=== PATIENT | male | born 1950 | race Caucasian/White ===

== ENCOUNTER → 2020-02-08 09:45 | Outpatient (CLI) | payer MEDICARE, SELFPAY ==
--- NOTE | ~2020-02-08 | MR_ITS ---
EXAMINATION: MR knee RT wo con DATE: 02/08/2020 10:21 INDICATION: Unspecified internal derangement of the right knee TECHNIQUE: Magnetic resonance imaging (MRI) of the right knee was performed without intravenous contr ast. Sequences included coronal PD-weighted FSE, coronal PD-weighted FS FSE, sagittal T2-weighted FS E, sagittal PD-weighted FS FSE and axial PD weighted fat saturated FSE. COMPARISON: None. FINDINGS: Medial compartment: Complex tear at the posterior horn of the medial meniscus which includes a radial tear across the inn er half of the posterior horn. There is a longitudinal vertical tear plane which extends laterally an d gradually more peripherally from the radial tear plane towards the root of the medial meniscus. Par tial-thickness chondral ulceration involving less than 50% the cartilage thickness and with chondral surface regularity along the anterior to central weightbearing medial femoral condyle. There is deep chondral fissuring with mild underlying subarticular edema at the posterior weightbearing medial femo ral condyle. There is heterotopic ossification along the capsular insertion at the posterolateral mar gin of the medial tibial plateau. Lateral compartment: Lateral meniscus is normal. Small region of shallow chondral fissuring at the posterior aspect of the lateral tibial plateau. Patellofemoral compartment: Partial-thickness cartilage loss with chondral surface regularity along the medial patellar facet and apical ridge. Scattered deeper chondral fissuring of both the medial and lateral patellar facets wit h a few scattered small foci of subarticular edema at both the medial and lateral facets. Deep chondr al fissuring with mild subarticular edema at the inferior aspect of the lateral trochlea. Small centr al subchondral osteophyte at the margin of a small deep chondral ulceration at the inferior aspect of the medial trochlea. Ligaments and tendons: Anterior cruciate ligament is normal. There is mild thickening and increased intrasubstance signal wi thin the distal portion of the posterior cruciate ligament which could represent mucoid degeneration or partial tear. The medial collateral ligament and fibular collateral ligament complex are normal. M ild distal quadriceps tendinopathy with moderate sized enthesophytes at the superficial aspect of the patellar insertion. Patellar tendon is normal. The visualized medial and lateral hamstring tendons a s well as the iliotibial band are normal. Fluid: Small right knee joint effusion. No loose osteochondral bodies identified. Osseous/other: Developmental variant type II bipartite patella with separate smaller accessory ossification along th e lateral margin of the patella proper. There is cystic change along both sides of the synchondrosis. No fracture or pathologic marrow replacing process. There is edema in the superficial suprapatellar fat pad which can be seen with fat pad impingement syndrome. IMPRESSION: 1. 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 2. Complex tear of the posterior horn of the medial meniscus. 3. Mild tricompartmental osteoarthritis with minimal moderate grade chondromalacia in the lateral com partment more extensive moderate and high-grade chondromalacia in the medial and patellofemoral aurelio rtments. 4. Mucoid degeneration versus possible partial tear of the posterior cruciate ligament. 5. Mild chronic enthesopathy at the distal quadriceps tendon. 6. Likely reactive small right knee joint effusion. 7. Comparison mild edema in the superficial suprapatellar fat pad which can be seen with fat pad impi ngement syndrome. Reviewed, dictated and finalized at location B. Electronically signed by Jayy Gonsales M.D
== END ==
PROVIDERS: Visit Provider Orthopaedic Surgery
DX: S83.231A Complex tear of medial meniscus, current injury, right knee, initial encounter (principal); X58.XXXA Exposure to other specified factors, initial encounter; M17.11 Unilateral primary osteoarthritis, right knee; M25.461 Effusion, right knee
CPT/HCPCS: 73721

== ENCOUNTER 2020-10-08 10:16 | Outpatient (CLI) | payer MEDICARE, SELFPAY ==
--- NOTE | 2020-10-08 10:30 | ECG_ITS ---
Measurements Intervals [place] Rate: 60 P: 59 TX: 183 QRS: -9 QRSD: 151 T: 44 QT: 484 QTc: 487 Interpretive Statements SINUS RHYTHM POSSIBLE LEFT ATRIAL ENLARGEMENT RIGHT BUNDLE BRANCH BLOCK CONSIDER INFERIOR INFARCT, AGE INDETERMINATE ABNORMAL ECG Electronically Signed On 10-08-2020 10:38:48 CDT by Lewis Rock D.O.
== END 2020-10-08 10:17 | disposition home or self-care (01) ==
LOC: ANHSURGERY 10:23
PROVIDERS: PCP Family Medicine; Visit Provider Orthopaedic Surgery
DX: Z01.810 Encounter for preprocedural cardiovascular examination (principal); I45.10 Unspecified right bundle-branch block; I10 Essential (primary) hypertension
CPT/HCPCS: 93005

== ENCOUNTER → 2020-10-14 00:32 | Outpatient (CLI) | payer MEDICARE, SELFPAY ==
[2020-10-16 13:35] LABS: SARS-CoV-2 RNA PCR Negative
== END ==
PROVIDERS: PCP Family Medicine; Visit Provider Orthopaedic Surgery
DX: Z01.812 Encounter for preprocedural laboratory examination (principal); Z20.822 Contact with and (suspected) exposure to COVID-19
CPT/HCPCS: C9803; U0003; U0005

== ENCOUNTER → 2020-11-09 00:56 | Outpatient (CLI) | payer MEDICARE, SELFPAY ==
[2020-11-09 16:45] LABS: SARS-CoV-2 RNA PCR Negative
== END ==
PROVIDERS: PCP Family Medicine; Visit Provider Orthopaedic Surgery
DX: Z01.812 Encounter for preprocedural laboratory examination (principal); Z20.822 Contact with and (suspected) exposure to COVID-19
CPT/HCPCS: C9803; U0003; U0005

== ENCOUNTER 2020-11-12 00:38 | Day surgery (SDC) | payer MEDICARE, SELFPAY ==
[2020-09-27 15:19] VITALS: BMI 24.4
[2020-11-06 15:23] VITALS: BMI 26.2
--- NOTE | 2020-11-11 10:16 | WPDANESEPPF ---
Anes - Initial Pre Proc Eval Procedure: Operation Date: 11/12/20 13:30 Proposed Procedures p Right Knee Arthroscopic Partial Medial Meniscectomy - Ravinder Wright MD Date/Time: 11/11/20 10:16 Surgeon: Ravinder Wright MD Pre Op Diagnosis: medial meniscus tear right knee Patient Data Age: 70 Gender: M Height: 1.79 m Weight: 83.95 kg Allergies Allergy/AdvReac Type Severity Reaction Status Date / Time No Known Allergies Allergy Verified 11/12/20 11:56 Home Medications Medication Instructions Recorded Confirmed Type aspirin 81 mg chewable tablet 81 mg PO DAILY 01/29/20 11/12/20 History atorvastatin 40 mg tablet 40 mg PO DAILY 01/29/20 11/12/20 History carvedilol 6.25 mg tablet 6.25 mg PO Q12H 01/29/20 11/12/20 History lisinopril 5 mg tablet 5 mg PO DAILY 01/29/20 11/12/20 History tadalafil 5 mg tablet 5 mg PO DAILY 01/29/20 11/12/20 History cholecalciferol (vitamin D3) 50 mcg PO DAILY 09/27/20 11/12/20 History coQ10 (ubiquinol) 200 mg PO DAILY 09/27/20 11/12/20 History zinc 50 mg PO DAILY 09/27/20 11/12/20 History Patient hx anesthesia problems: none Family hx anesthesia problems: none PMFSH Past Medical History Medical History (Updated 11/11/20 @ 10:17 by Cameron Muñoz DO) Acute medial meniscus tear of right knee CAD (coronary artery disease) History of heart attack 2014 Hyperlipidemia Hypertension Surgical History Surgical History (Updated 11/11/20 @ 10:17 by Cameron Muñoz DO) History of heart bypass surgery (~03/2015) x4, 2015 History of hydrocelectomy (~09/2013) History of repair of rotator cuff (~10/2014) Status post left rotator cuff repair Family History Family History Unknown Heart disease Diabetes mellitus Alzheimer disease Social History Social History Smoking status: Never smoker Alcohol intake: current Alcohol use details: 7 Living arrangements: with family Spiritual care concerns: No Anes - Eval Final PreProcedure Day of Procedure 11/11/20 10:16 Patient weight: overweight Heart: regular rate and rhythm Lungs: clear to auscultation and normal air movement Airway: Mallampati scale class II Neurological: alert and oriented Last oral intake: 6 hours (coffee) ASA classification: III Emergent: no Anesthetic plan: proceed Anesthesia type and monitoring: general ETT and standard monitoring Informed Consent: The patient's anesthetic plan and its attendant risks and benefits were discussed with the patient/family/POA. Questions were solicited and answers provided to the satisfaction of the patient/family/POA.
[2020-11-12] VITALS (10 sets, daily range): BP systolic 104–157; BP diastolic 63–91; PULSE 49–66; RESP 12–20; TEMP 35.9–36.4; O2SAT 98–100; BMI 26.5
[2020-11-12] MEDS: LACTATED RINGERS 1,000 ML 30 ML IV CONT ×2 (12:16→15:15)
[2020-11-12] MEDS: ACETAMINOPHEN 500 MG TABLET 1000 MG PO (12:16)
[2020-11-12] MEDS: KETOROLAC 15 MG/ML VIAL (*BKC) IV PUSH (12:17)
--- NOTE | 2020-11-12 14:10 | PM.HPGS ---
History of Present Illness History of Present Illness Consent: Risks, benefits, and alternatives have been discussed and questions answered. Patient agrees to proceed with procedure. Chief complaint: medial meniscus tear right knee Narrative: Steve Boyce is a 70 year old male complains of knee pain. Pain started while jogging in June. Sharp pain with pivoting. Pain radiates down into the adams. He typically walks 3-4 miles, but is unable to do it due to pain. He states he cannot squat or bend his knee. He has tried jogging and had significant pain. Some nights he has throbbing pain. 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 EXAM Appears healthy, in no distress. Normal gait. No deformity. Skin without rash or lesion. No effusion. Tenderness at the joint line. Range of motion 0 to 140?. Pain with hyperflexion. Aisha's test positive. Stability: ACL intact. PCL normal. No medial or lateral instability. Patella: Normal Q-angle, no instability, normal passive patellar tilt. Hip examination is benign. No distal edema. Pedal pulse palpable. Anterior tibialis strength normal. Light touch sensation intact. Left shoulder active elevation 170?, external rotation 70?, internal rotation L1. Severely painful arc of motion. Sharp pain with resisted supraspinatus testing at 4/5 strength. External rotation strength 4/5. Negative belly press test. Tender at the rotator cuff insertion. Neurovascular status intact. Review of Systems Review of Systems: All systems reviewed & are unremarkable except as noted in HPI and below PMFSH Past Medical History Medical History (Updated 11/11/20 @ 10:17 by Cameron Muñoz DO) Acute medial meniscus tear of right knee CAD (coronary artery disease) History of heart attack 2014 Hyperlipidemia Hypertension Surgical History Surgical History (Updated 11/11/20 @ 10:17 by Cameron Muñoz DO) History of heart bypass surgery (~03/2015) x4, 2015 History of hydrocelectomy (~09/2013) History of repair of rotator cuff (~10/2014) Status post left rotator cuff repair Family History Family History Unknown Heart disease Diabetes mellitus Alzheimer disease Social History Social History Smoking status: Never smoker Alcohol intake: current Alcohol use details: 7 Living arrangements: with family Spiritual care concerns: No Meds Home Medications and Allergies Home Medications Medication Instructions Recorded Confirmed Type aspirin 81 mg chewable tablet 81 mg PO DAILY 01/29/20 11/12/20 History atorvastatin 40 mg tablet 40 mg PO DAILY 01/29/20 11/12/20 History carvedilol 6.25 mg tablet 6.25 mg PO Q12H 01/29/20 11/12/20 History lisinopril 5 mg tablet 5 mg PO DAILY 01/29/20 11/12/20 History tadalafil 5 mg tablet 5 mg PO DAILY 01/29/20 11/12/20 History cholecalciferol (vitamin D3) 50 mcg PO DAILY 09/27/20 11/12/20 History coQ10 (ubiquinol) 200 mg PO DAILY 09/27/20 11/12/20 History zinc 50 mg PO DAILY 09/27/20 11/12/20 History Allergies Allergy/AdvReac Type Severity Reaction Status Date / Time No Known Allergies Allergy Verified 11/12/20 11:56 Vital Signs Vital Signs - 24 hr 11/12/20 12:06 Temperature 35.9 C L Pulse Rate 57 L Respiratory Rate 20 Blood Pressure 137/78 Pulse Oximetry 100 Assessment and Plan Assessment and plan (1) Acute medial meniscus tear of right knee: Qualifiers: Encounter type: subsequent encounter Qualified Code(s): S83.241D - Other tear of medial meniscus, current injury, right knee, subsequent encounter Code(s): S83.241A - Other tear of medial meniscus, current injury, right knee, initial encounter Status: Acute Assessment and Plan: Complex extensive tear of the posterior medial meniscus. Only mild arthritic changes in the knee. Very active gentleman. Pain began suddenly after jogging.
--- NOTE | 2020-11-12 14:19 | WPDHPUPDATE1 ---
History and Physical Update Update Date/Time: 11/12/20 14:19 History and Physical has been reviewed, including an updated exam of the patient. There are NO changes in the patient's condition. Risks, benefits, and alternatives have been discussed and questions answered. Patient agrees to proceed with procedure.
[2020-11-12] MEDS: ceFAZolin 2 GM/D5W 50 ML 2 GM/50 ML BAG IVPB (14:24)
[2020-11-12] MEDS: BUPIVACAINE/EPINEPHRINE 0.5% 50 ML VIAL (14:54)
--- NOTE | 2020-11-12 17:14 | W.PM.PROC2 ---
Procedure Note - Detailed Date of Procedure 11/12/20 Pre-op Diagnosis medial meniscus tear right knee Post-op Diagnosis same Procedure Performed Arthroscopic partial medial meniscectomy, right knee Surgeon Ravinder Wright MD Customer Care Team Coach Emily Ortega PA-C Anesthesia general Findings Complex posterior horn meniscus tear. Grade 2 chondromalacia on the femur and tibia medially. Grade 3 chondromalacia and a small area on the medial trochlea and grade 3 on the patella. The lateral compartment was entirely normal. The ACL was intact. Description of Procedure The patient was identified and the surgical site confirmed and signed in the preoperative holding area. Antibiotics were started per protocol. She was brought to the operative room and transferred to the OR table. A general anesthetic was administered. Supine position with the operative lower extremity position in the leg soares after placement of a well padded tourniquet. The leg support was lowered and the contralateral limb was supported with a soft bolster. The knee was prepped and draped in the usual sterile fashion. A time-out was performed. The portal sites were marked and infiltrated with 0.5% Marcaine 20 mL. The limb was exsanguinated and the tourniquet inflated to 300 mL Hg. Standard inferolateral and inferomedial portals were established. Inflow was obtained with the saline pump. The camera was introduced. Diagnostic inspection of the joint was accomplished. The meniscus was debrided with the arthroscopic shaver and punches until stable. The arthroscopic instruments were removed. The tourniquet released and wounds closed with subcutaneous 3-0 Monocryl absorbable suture. Steri strips and a sterile dressing were applied. A light elastic wrap was placed. The patient was extubated and brought to the recovery room in stable condition. Estimated Blood Loss 5 Tourniquet Time 9 Packing No Pathology none sent Complications No immediate complications Condition stable Disposition PACU
== END 2020-11-12 17:40 | disposition home or self-care (01) ==
PROVIDERS: PCP Family Medicine; Visit Provider Orthopaedic Surgery
PROC: (CPT 29870; principal; 2020-11-12 13:30)
DX: S83.231A Complex tear of medial meniscus, current injury, right knee, initial encounter (principal); M22.41 Chondromalacia patellae, right knee; I10 Essential (primary) hypertension; E78.5 Hyperlipidemia, unspecified; I25.2 Old myocardial infarction; I25.10 Atherosclerotic heart disease of native coronary artery without angina pectoris; Z95.1 Presence of aortocoronary bypass graft; X58.XXXA Exposure to other specified factors, initial encounter; Y93.9 Activity, unspecified; Y92.9 Unspecified place or not applicable; Y99.9 Unspecified external cause status; Z79.899 Other long term (current) drug therapy
CPT/HCPCS: 29881; A9270; J0690; J1885; J2250; J3010; J7120

== ENCOUNTER → 2023-01-04 15:35 | Outpatient (CLI) | payer MEDICARE, SELFPAY ==
--- NOTE | ~2023-01-04 | MR_ITS ---
MRI of the left knee Clinical history: Pain Technique: Coronal proton density and proton density-weighted images, sagittal proton-density and T2 fat-sat images, and axial proton-density fat-saturated images were acquired. Findings: Anterior and posterior cruciate ligaments are intact. Medial collateral ligament and the la teral collateral ligament complex are intact. Popliteus tendon is intact. Questionable partial tear at the posterior root of the medial meniscus. No lateral meniscal tear seen . There is patchy mild chondromalacia along the medial femoral condyle. There is moderate to high-grade chondromalacia along the medial patellar facet and patellar apex. Bone marrow signals are unremarkab le. Extensor mechanism is intact. There is enthesopathic change or chronic [place]-Schlatter's change at t he distal patellar tendon. No significant joint effusion. Small [place] cyst present. Impression: Questionable partial tear at the posterior root of the medial meniscus. Moderate to high-grade chondromalacia patella, as detailed above. Mild chondromalacia of the medial f emoral condyle. Small [place]'s cyst. Enthesopathic change or chronic [place]-Schlatter's change at the distal patellar tendon. Reviewed, dictated and finalized at location . Impression: Questionable partial tear at the posterior root of the medial meniscus. Moderate to high-grade chondromalacia patella, as detailed above. Mild chondrom alacia of the medial femoral condyle. Small Hall's cyst. Enthesopathic change or chronic [place]-Schlatter's change at the distal patella r tendon.
== END ==
PROVIDERS: PCP Orthopaedic Surgery; Visit Provider Physician Assistant Surgical
DX: M71.22 Synovial cyst of popliteal space [Baker], left knee (principal)
CPT/HCPCS: 73721

== ENCOUNTER 2023-03-01 10:44 | Outpatient (CLI) | payer MEDICARE, SELFPAY ==
--- NOTE | 2023-03-01 10:54 | ECG_ITS ---
Measurements Intervals [place] Rate: 56 P: 62 OR: 189 QRS: -13 QRSD: 149 T: 38 QT: 472 QTc: 457 Interpretive Statements SINUS BRADYCARDIA POSSIBLE LEFT ATRIAL ENLARGEMENT RIGHT BUNDLE BRANCH BLOCK BASELINE ARTIFACT- V2 ABNORMAL ECG COMPARED TO ECG 10/08/2020 10:32:47 SINUS BRADYCARDIA NOW PRESENT Electronically Signed On 03-01-2023 12:04:08 FINANCIAL ACCOUNTING MANAGER by Lewis Rock D.O.
== END 2023-03-01 10:45 | disposition home or self-care (01) ==
LOC: ANHSURGERY 10:50
PROVIDERS: PCP Family Medicine; Visit Provider Orthopaedic Surgery
DX: I10 Essential (primary) hypertension (principal); Z01.818 Encounter for other preprocedural examination; I45.10 Unspecified right bundle-branch block
CPT/HCPCS: 93005

== ENCOUNTER 2023-03-04 01:52 | Day surgery (SDC) | payer MEDICARE, SELFPAY ==
--- NOTE | 2023-02-26 15:27 | PC.NURSE ---
Report to the Outpatient Waiting Room, entrance under the green pavilion located off [facility], at time __0600 on date _03/04/23 . Planned Procedure Time: __0730 . Time changes happen often and if your time is changed the preop area will call you the afternoon before. - You and your visitor will be asked to self-screen and do not enter if you have any COVID symptoms. - A mask is optional within the hospital at this time. Patients may have clear liquids (water, carbonated beverages, clear teas, apple juice) until 3 hours prior to surgery with a maximum of 20 ounces. - No food from midnight until time of surgery - Infants may have breast milk until 4 hours before surgery, infant formula 6 hours prior to surgery. - Children will be allowed to drink immediately following surgery. If applicable, please bring a bottle or sippy cup to assist with drinking. Juice, water, soda, and popsicles are readily available. For infants on formula, please bring formula the day of surgery. Pacifiers are allowed. Take the following medications with a SIP of water the morning of surgery: ____CARVEDILOL DO NOT STOP ANY OF YOUR OTHER PRESCRIPTION MEDICATIONS PRIOR TO SURGERY ?EXCEPT THE FOLLOWING Medications to discontinue per physician ASPIRIN HOLD 7 DAYS PRE OP PER DR POE LAST DOSE 02/25/23 ALL VITAMINS AND SUPPLEMENTS 3 DAYS PRE OP.LAST DOSE 02/28/23 Please no make-up, nail trinidadian, hairspray, perfume, deodorant, or body powder the day of surgery. No jewelry (including any body piercings) or valuables the day of surgery, leave them at home. Please take a shower or bath the night before, or the morning of, surgery with an antibacterial soap. Wear comfortable, loose fitting clothing. Children are encouraged to wear pajamas. - Jewelry must be removed prior to entering the operating room. Rings and piercings that are not removed may be cut off. - The hospital will not accept responsibility for valuables. - Please leave all valuables, including medications, at home the day of surgery. If you are going home after surgery, a licensed regional refrigerated cdl truck driver must drive you home. - NO public transportation without another adult if you receive anesthesia. - We recommend that an adult stay with you for 24 hours following discharge. - We also recommend that you do not drive, make important decision, drink alcoholic beverages, or take any drugs that were not prescribed by your health care provider for at least 24 hours after your discharge time. For Pediatric surgeries, we recommend two adults accompany the child home. Follow any additional instructions given to you from your surgeon. If you or anyone in your household have experienced Covid symptoms in the past week, please notify your surgeon or the nurse liaison at the phone number below for possible testing. Telephone instructions given to _PATIENT and asked if any additional questions and then verbalized understanding. Patient advised to call surgeon office or pre surgery nurse liaison [phone] if any additional questions.
[2023-02-26 15:35] VITALS: BMI 23.7
[2023-03-04] VITALS (8 sets, daily range): BP systolic 126–172; BP diastolic 81–98; PULSE 51–82; RESP 12–16; TEMP 36.2–36.3; O2SAT 99–100
[2023-03-04] MEDS: LACTATED RINGERS 1,000 ML 30 ML IV CONT ×2 (08:30→11:17)
[2023-03-04] MEDS: KETOROLAC 15 MG/ML VIAL (*BKC) IV PUSH (09:00)
[2023-03-04] MEDS: ACETAMINOPHEN 500 MG TABLET 1000 MG PO (09:00)
--- NOTE | 2023-03-04 09:36 | WPDANESEPPF ---
Anes - Initial Pre Proc Eval Procedure: Operation Date: 03/04/23 10:30 Proposed Procedures p Left Knee Arthroscopic Partial Medial Meniscectomy - Ravinder Wright MD Date/Time: 03/04/23 09:36 Surgeon: Ravinder Wright MD Pre Op Diagnosis: medial meniscus tear Patient Data Age: 73 Gender: M Height: 1.79 m Weight: 77.4 kg Last Vital Signs Temp 36.2 C L 03/04/23 09:14 Pulse 61 03/04/23 09:14 Resp 16 03/04/23 09:14 BP 126/81 03/04/23 09:14 Pulse Ox 100 03/04/23 09:14 O2 Del Method Room Air 03/04/23 09:14 Allergies Allergy/AdvReac Type Severity Reaction Status Date / Time No Known Allergies Allergy Verified 03/04/23 09:13 Home Medications Medication Instructions Recorded Confirmed Type aspirin 81 mg chewable tablet 81 mg PO DAILY 01/29/20 03/04/23 History atorvastatin 40 mg tablet 40 mg PO DAILY 01/29/20 02/26/23 History carvedilol 6.25 mg tablet 6.25 mg PO Q12H 01/29/20 02/26/23 History lisinopril 5 mg tablet 5 mg PO DAILY 01/29/20 02/26/23 History tadalafil 5 mg tablet 5 mg PO DAILY 01/29/20 02/26/23 History cholecalciferol (vitamin D3) 50 50 mcg PO DAILY 09/27/20 02/26/23 History mcg (2,000 unit) tablet coQ10 (ubiquinol) 200 mg capsule 200 mg PO DAILY 09/27/20 02/26/23 History zinc 50 mg capsule 50 mg PO DAILY 09/27/20 02/26/23 History acetaminophen 500 mg capsule 1,000 mg PO Q6H PRN Pain 02/26/23 02/26/23 History ascorbic acid (vitamin C) 1,000 mg 1 g PO DAILY 02/26/23 02/26/23 History tablet melatonin 3 mg tablet 6 mg PO HS PRN Insomnia 02/26/23 02/26/23 History omeprazole 40 mg capsule,delayed 40 mg PO BID 02/26/23 02/26/23 History release hydrocodone 5 mg-acetaminophen 325 1 - 2 tablet PO Q4-6H PRN pain #30 03/04/23 Rx mg tablet tabs Patient hx anesthesia problems: none Family hx anesthesia problems: none Results Review: All pre-operative results and documents have been reviewed as part of the pre-operative evaluation. [facility] Past Medical History Medical History Acute medial meniscus tear of right knee CAD (coronary artery disease) History of heart attack 2014 Hyperlipidemia Hypertension Surgical History Surgical History History of heart bypass surgery (~03/2015) x4, 2014 History of hydrocelectomy (~09/2013) History of medial meniscus repair of right knee (~11/12/20) History of repair of rotator cuff (~10/2014) left shoulder Family History Family History Unknown Heart disease Diabetes mellitus Alzheimer disease Social History Social History Smoking status: Never smoker Alcohol intake: current Drinks per week: 1 Alcohol use details: 7 Lack of Transportation: No Lack of Food: Never True Current Housing: I Have Housing Concerned About Future Housing: No Difficulty Paying Gas/Electric Bills: No Difficulty Paying for Meds: No Currently Unemployed: No Education: High School Diploma/GED Difficulty w/ Childcare or Family Care: No Living arrangements: with family Spiritual care concerns: No Anes - Eval Final PreProcedure Day of Procedure 03/04/23 09:36 Patient weight: normal Heart: regular rate and rhythm Lungs: clear to auscultation Airway: Mallampati scale class II Neurological: alert and oriented Last oral intake: >/= 8 hours ASA classification: III Emergent: no Anesthetic plan: proceed Anesthesia type and monitoring: general LMA and standard monitoring Results Review: All pre-operative results and documents have been reviewed as part of the pre-operative evaluation. Informed Consent: The patient's anesthetic plan and its attendant risks and benefits were discussed with the patient/family/POA. Questions were solicited and answers provided to the satisfaction of th
--- NOTE | 2023-03-04 10:03 | WPDHPUPDATE1 ---
History and Physical Update Update Date/Time: 03/04/23 10:03 History and Physical has been reviewed, including an updated exam of the patient. There are NO changes in the patient's condition. Risks, benefits, and alternatives have been discussed and questions answered. Patient agrees to proceed with procedure.
[2023-03-04] MEDS: ceFAZolin 2 GM/D5W 50 ML 2 GM/50 ML BAG IVPB (10:28)
[2023-03-04] MEDS: BUPIVACAINE/EPINEPHRINE 0.5% 50 ML VIAL 20 ML INFILTRATE (11:24)
--- NOTE | 2023-03-04 11:29 | P.OP_ITS ---
Procedure Note - Detailed Date of Procedure 03/04/23 Pre-op Diagnosis Left knee medial meniscus tear Post-op Diagnosis Same Procedure Performed Arthroscopic partial medial meniscectomy, left knee. Surgeon Ravinder Wright MD Anesthesia General Findings Inflammation was noted at the synovium superiorly. 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 The lateral compartment was normal. The ACL was normal. There was a tiny defect in the medial weight-bearing cartilage and then a more substantial grade 2/3 chondromalacia along the medial femoral weight-bearing area. There was an area that appeared to be slightly delaminated from catching on the posterior meniscus tear. There was a significant split radially and degenerative posterior horn which debrided carefully with the shaver and the radiofrequency probe. Gentle chondral plasty on area of the femoral condyle. Description of Procedure The patient was identified and the surgical site confirmed and signed in the preoperative holding area. Antibiotics were started per protocol. She was br ought to the operative room and transferred to the OR table. A general anesthetic was administered. Supine position with the operative lower extremity position in the leg soares after placement of a well padded tourniquet. The leg support was lowered and the contralateral limb was supported with a soft bolster. The knee was prepped and draped in the usual sterile fashion. A time- out was performed. The portal sites were marked and infiltrated with 0.5% Marcaine 20 mL. The limb was exsanguinated and the tourniquet inflated to 300 mL Hg. Standard inferolateral and inferomedial portals were established. Inflow was obtained with the saline pump. The camera was introduced. Diagnostic inspection of the joint was accomplished. The meniscus was debrided with the arthroscopic shaver and punches until stable. The radiofrequency probe was also used for further d?bridement. Gentle chondroplasty on the medial femur with the shaver and with the radiofrequency probe at low setting. The arthroscopic instruments were removed. The tourniquet released and wounds closed with subcutaneous 4-0 Monocryl absorbable suture. Steri strips and a sterile dressing were applied. A light elastic wrap was placed. The patient was extubated and brought to the recovery room in stable condition. Estimated Blood Loss 5 Drains No Complications No immediate complications Condition Stable Disposition PACU [facility] Billing Surgery - Charge Forward: Surgery Billing
== END 2023-03-04 13:06 | disposition home or self-care (01) ==
PROVIDERS: PCP Family Medicine; Visit Provider Orthopaedic Surgery
PROC: (CPT 29870; principal; 2023-03-04 10:30)
DX: M23.322 Other meniscus derangements, posterior horn of medial meniscus, left knee (principal); M65.862 Other synovitis and tenosynovitis, left lower leg; M22.42 Chondromalacia patellae, left knee; I10 Essential (primary) hypertension; I25.10 Atherosclerotic heart disease of native coronary artery without angina pectoris; I25.2 Old myocardial infarction; E78.5 Hyperlipidemia, unspecified; Z95.1 Presence of aortocoronary bypass graft; Z79.82 Long term (current) use of aspirin
CPT/HCPCS: 29881; A9270; J0690; J1100; J1885; J2405; J2704; J3010; J7120